=== PATIENT | female | born 1955 ===

== ENCOUNTER 2025-03-02 08:00 | Day surgery (SDC) | payer OTHER ==
[2025-02-23 10:49] VITALS: BP 128/87
[~2025-03-02] VITALS: Ht 154.9 cm; Wt 74.8 kg
[~2025-03-02 08:00] MED LIST: CELEBREX200MG PO; LYRICA150 MG PO; LYRICA50 MG; RESTORIL30 M1 PO; SEROQUEL50 MG PO; SIMVASTATIN5 MG; SYNTHROID50 MCG PO
[2025-03-02] MEDS ORDERED: METRONIDAZOLE/SODIUM CHLORIDE 500 MG/100 ML PIGGYBACK IV ONE (08:57)
[2025-03-02] MEDS ORDERED: levoFLOXacin IN DEXTROSE 5 % 5 MG/ML PIGGYBAG IV ONE (10:15)
== END 2025-03-02 12:30 | disposition home or self-care (01) ==
LOC: CIR.AMB 08:00
PROVIDERS: ATTEND Colon & Rectal Surgery
DX: R15.9 Full incontinence of feces (principal); R32 Unspecified urinary incontinence
CPT/HCPCS: 64581; 95971; C1778

== ENCOUNTER 2025-03-16 06:00 | Day surgery (SDC) | payer OTHER ==
[2025-03-16] MEDS ORDERED: METRONIDAZOLE/SODIUM CHLORIDE 500 MG/100 ML PIGGYBACK IV ONE (08:15)
[2025-03-16] MEDS ORDERED: LIDOCAINE HCL 1%/EPINEPHRINE 20ML VIAL IJ ONE (08:15)
[2025-03-16] MEDS ORDERED: BUPIVACAINE HCL 30 ML VIAL IV ONE (08:15)
[2025-03-16] MEDS ORDERED: levoFLOXacin IN DEXTROSE 5 % 5 MG/ML PIGGYBAG IV ONE (08:15)
== END 2025-03-16 11:55 | disposition home or self-care (01) ==
LOC: CIR.AMB 06:00
PROVIDERS: ATTEND Colon & Rectal Surgery
DX: R15.9 Full incontinence of feces (principal); R32 Unspecified urinary incontinence; Z88.0 Allergy status to penicillin
CPT/HCPCS: 64590; 95971; C1778